=== PATIENT | female | born 1945 | race Caucasian/White ===

== ENCOUNTER → 2019-12-13 | Outpatient (CLI) | payer MEDICARE, OTHER ==
[~2019-12-13] MED LIST: CALCITRIOL0.25 MCG PO; CARVEDILOL6.25 MG PO; CLONIDINE HCL0.1 MG PO; CLOPIDOGREL75 MG PO; DIOVAN160 MG PO; DIOVAN80 MG PO; DUO NEB; MECLIZINE HCL25 MG PO; PANTOPRAZOLE SO40 MG PO; POLYETHYLENE GL17 GM PO; PROAIR HFA INH8.5 GM INH; PROTONIX20 MG PO; PROTONIX40 MG PO; VENLAFAXINE HCL75 M2 PO; VENTOLIN HFA18 GM INH; ZYRTEC10 MG PO
--- NOTE | 2019-12-13 12:17 | Diagnostic Imaging Report ---
Modified Barium Swallow: Fluoroscopy service was provided to speech pathology department for this exam. A full report from speech pathology will follow. Impression: As above. Fluoroscopy time 1.4 minutes. Fluoroscopy dose: 7.34 mGy air kerma. Signed by: Graeme Anna MD on 12/13/2019 12:14 PM
== END ==
LOC: DX 09:27
PROVIDERS: ATTEND Internal Medicine Gastroenterology
DX: R07.89 Other chest pain (principal); Z11.59 Encounter for screening for other viral diseases
CPT/HCPCS: 74230; 87635

== ENCOUNTER → 2020-10-15 | Outpatient (CLI) | payer MEDICARE, OTHER | LOC: US 13:24 | PROVIDERS: ATTEND Family Medicine | DX: N39.0 Urinary tract infection, site not specified (principal) | CPT/HCPCS: 76857 ==